=== PATIENT | female | born 1960 | race Caucasian/White ===

== ENCOUNTER 2017-05-05 09:35 | Observation (INO) | payer MEDICARE, MEDICAID ==
--- NOTE | ~2017-05-05 | HP ---
PATIENT: FRANCOIS GRACE MEDICAL RECORD: [id number] ACCOUNT: [id number] LOCATION:[address] : 56 ADMISSION DATE: 05/05/17 HISTORY AND PHYSICAL EXAMINATION ADMITTING DIAGNOSES: 1. Chest pain compatible with angina. 2. Abnormal stress test. 3. Past history of cerebrovascular accident. HISTORY OF PRESENT ILLNESS: Ms. Grace has no cardiac history. She does have a vascular history of CVA for which she is on Aggrenox followed by a doctor in [place]. She began having chest pain. Her doctor in [place] sent her for stress testing, this was abnormal. He has been trying to get her in with a sales specialist. She has had difficulty getting to [place] to see to the sales specialist. She presents to the Emergency Room with continued chest pain in a worsening fashion. PHYSICAL EXAMINATION: GENERAL APPEARANCE: Well-nourished, well-developed, appears stated age. Level of distress, comfortable. PSYCHIATRIC: Mental status, alert, normal affect. Orientation, oriented to time, place and person. EYES: Lids and conjunctiva, noninjected. No discharge, no pallor. ENT: Lips, teeth, gums, normal dentition. Oropharynx, no cyanosis, no pallor. NECK: Carotid arteries, bilateral normal upstroke, no bruits, no thrills. JUGULAR VEINS: No jugular venous pressure or distention. CERVICAL LYMPH NODES: Nontender, nonenlarged. THYROID: Not enlarged. Nontender. No nodules. LUNGS: Respiratory effort, unlabored. CHEST: Normal curvature. No thoracic deformity. No chest wall tenderness. Percussion, resonant. Auscultation, clear. No wheezes, no rales, no rhonchi. CARDIOVASCULAR: Precordial exam, nondisplaced. No heaves or pericardial thrills. Rate and rhythm, regular. Heart sounds, normal S1, normal S2. No S3, no gallop, no rub. Systolic murmur, not heard. Diastolic murmur, not heard. EXTREMITIES: No cyanosis, no edema. Peripheral pulses, full and equal in all extremities, except as noted. No bruits appreciated. ABDOMEN: Soft, nondistended. Normal aorta. No bruit. Nontender. No masses. Liver, nontender, no hepatomegaly. Spleen, nontender, no splenomegaly. MUSCULOSKELETAL: No joint tenderness. No joint swelling. No erythema. NEUROLOGICAL: Normal gait, normal strength, normal tone. SKIN: Warm and dry. OVERALL IMPRESSION: Unstable angina in a worsening fashion. We will proceed with coronary angiography. Further care depends upon findings of the angiography. TRANSINT:[id number] Voice Confirmation ID: [id number] DOCUMENT ID: [id number] HISTORY AND PHYSICAL [id number] FRANCOIS GRACE JEFFREY MD at 1153 CC: [id number] DICTATION DATE: 05/05/17 1540 TRUST ADMINISTRATIVE ASSISTANT: 05/05/17 1725 DIS IN 05/06/17 [facility] [address] [place] [address]
--- NOTE | ~2017-05-05 | DS ---
PATIENT:FRANCOIS GRACE :56 MEDICAL RECORD: [id number] DISCHARGE SUMMARY ADMISSION DATE: 05/05/17 DISCHARGE DATE: 05/06/17 DIAGNOSES: 1. Chest pain. 2. Normal cardiac catheterization. 3. Previous cerebrovascular accident. 4. Hypertension. HOSPITAL COURSE: Ms. Grace presents with chest pain compatible with angina; however, cardiac catheterization revealed no significant coronary artery disease. She was discharged home with no change in her medications. No cardiac followup is necessary. TRANSINT:[id number] Voice Confirmation ID: [id number] DOCUMENT ID: [id number] PAM CHEN MD at 1153 CC: [id number] DICTATION DATE: 05/06/17 0837 ASSEMBLY LINE WORKER: 05/06/171920 DIS IN 05/06/17 [facility] [address] [place] [address]
--- NOTE | ~2017-05-05 | HEMODYNAMI ---
PATIENT:FRANCOIS DORSEY MEDICAL RECORD: [id number] : 56 [facility] ADMISSION DATE: 05/05/17 Generatedon:05/06/20178:34 Patient name: FRANCOIS DORSEY Patient #: [id number] SSN: D OB: 1960 Date of study: 05/06/2017 Page: Of Hemodynamic Procedure Report Patient Data Patient Demographics Procedure consent was obtained First Name: FRANCOIS Gender: Female Last Name: WILLIAN : 1960 Middle Initial: E Age: 57 year(s) Patient #: [id number] Race: Unknown Additional ID: [id number] Contact details [address]: [address] [place] [address] rd State: [place] City: [place] Zip code: [address] Past Medical History Allergies: No known allergies Admission Admission Data Admission Date: 05/05/2017 Admission Time: 15:42 Room #: D.2114 Lab Results Lab Result Date: 05/06/2017 Lab Result Time: 0:00 Biochemistry Name Units Result Min Max BUN mg/dl 16 --(---*)-- 7 18 Creatinine mg/dl 1.1 --(--*-)-- 0.6 1.3 CBC Name Units Result Min Max Hemoglobin g/dl 14.3 --(*---)-- 13.5 17.5 Procedure Procedure Types Cath Procedure Diagnostic Procedure [facility] w/Coronaries Procedure Description Procedure Date Procedure Date: 05/06/2017 Procedure Start Time: 8:24 Procedure End Time: 8:34 Procedure Staff Name Function Timothy Tamayo MD Performing Physician Frandy Hayes RT Monitor Rosie Berg RT Scrub Yefri Rosas RN Nurse Procedure Data Cath Procedure Fluoroscopy Diagnostic fluoroscopy Total fluoroscopy Time: 0.9 time: 0.9 min min Diagnostic fluoroscopy Total fluoroscopy dose: 462 dose: 462 mGy mGy Contrast Material Contrast Material Type Amount (ml) Isovue 300 47 Entry Location Entry Primary Successful Side Size Upsize Upsize Entry Closure Succes sful Closure Location (Fr) 1 (Fr) 2 (Fr) Remarks Device Remarks Femoral Right 5 Fr Exoseal artery Estimated blood loss: 5 ml Diagnostic catheters Device Type Used For End Catheter Placement MULTIPACK Pigtail 5 Fr Procedure catheter MULTIPACK JL 4.0 5Fr Procedure catheter MULTIPACK 3DRC 5Fr Procedure catheter Procedure Complications No complications Procedure Medications Medication Administration Route Dosage Oxygen NC 2 l/min Heparin Flush Bag added to field 2 bags (1000units/500ml NS) 0.9% NaCl I.V. 100 ml/hr Fentanyl I.V. 50 mcg Versed I.V. 1 mg Fentanyl I.V. 50 mcg Versed I.V. 1 mg Fentanyl I.V. 50 mcg Hemodynamics Rest HGB: 14.3 (g/dl) Heart Rate: 73 (bpm) Pressure Samples Time Site Value (mmHg) Purpose Heart Use Rate(bpm) 8:25 LV 122/39,17 Snapshot 45 Snapshots Pre Cath Intra NCS Post Cath Vital Signs Time Heart Resp SPO2 etCO2 NIBP (mmHg) Rhythm Pain Sedation Rate (ipm) (%) (mmHg) Status Level (bpm) 8:08:25 74 21 100 40.8 129/68(104) NSR 0 (11) 10(A) , No pain 8:13:12 72 19 98 37.8 127/71(99) NSR 0 (11) 10(A) , No pain 8:17:58 77 17 96 38.5 128/71(101) NSR 0 (11) 10(A) , No pain 8:22:43 77 16 97 119/69(90) NSR 0 (11) 10(A) , No pain 8:27:28 70 16 95 0 112/64(90) NSR 0 (11) 9(A) , No pain 8:30:18 86 16 96 0 117/74(100) NSR 0 (11) 9(A) , No pain Medications Time Medication Route Dose Verified Delivered Reason Notes Effect iveness by by 8:07:43 Oxygen NC 2 Timothy Asif Per l/min Roni Rosas RN physician 8:07:51 Heparin Flush added 2 Timothy Asif used for Bag to bags Roni Rosas superintendent logging (1000units/500ml field NS) 8:08:00 0.9% NaCl I.V. 100 Timothy Asif Per ml/hr Roni Rosas RN physician 8:22:22 Fentanyl I.V. 50 Timothy Asif for radha Rosas RN sedation 8:22:28 Versed I.V. 1 mg Timothy Asif for Roni Rosas RN sedation 8:25:11 Fentanyl I.V. 50 Timothy Asif for radha Rosas RN sedation 8:25:16 Versed I.V. 1 mg Timothy Asif for Roni Rosas RN sedation 8:26:49 Fentanyl I.V. 50 Timothy Asif for radha Rosas RN sedation Procedure Log Time Note 7:43:54 Time tracking: Regular hours 7:43:58 Plan of Care:Hemodynamics will remain stable., Cardiac rhythm will remain stable., Comfort level will be maintained., Respiratory function will remain adequate., Patient/ family verbilizes understanding of procedure., Procedure tolerated without complication., Recovers from procedure without complications.. 7:44:00 Signed procedure consent form obtained from patient. 7:45:50 Lab Result : BUN 16 mg/dl 7:45:50 Lab Result : Creatinine 1.1 mg/dl 7:45:50 Lab Result : Hemoglobin 14.3 g/dl 7:46:01 Patient allergic to No known allergies 7:46:52 Frandy Hayes RT(R) sent for patient. Start room use. 8:04:01 Patient received from Pre/Post Procedure Room to CCL 1 Alert and oriented. Tansferred to table in Supine position. 8:04:02 Warm blankets applied, and gallo hugger turned on for patient comfort. 8:04:02 Correct patient and procedure confirmed by team. 8:04:03 ECG and BP/O2 sat monitors applied to patient. 8:07:24 Vital chart was started 8:07:43 Oxygen 2 l/min NC was administered by Yefri Rosas RN; Per physician; 8:07:51 Heparin Flush Bag (1000units/500ml NS) 2 bags added to field was administered by Yefri Rosas RN; used for procedure; 8:08:00 0.9% NaCl 100 ml/hr I.V. was administered by Yefri Rosas RN; Per physician; 8:11:49 Baseline sample Acquired. 8:11:57 Rhythm: sinus rhythm 8:12:00 Full Disclosure recording started 8:12:06 H&P Date Dictated: 05/05/2017 Within 30 days and on chart.. 8:12:08 Pre-procedure instructions explained to patient. 8:12:08 Pre-op teaching completed and patient verbalized understanding. 8:12:10 Family in patients room. 8:12:11 Patient NPO since Midnight. 8:12:13 Is the patient allergic to Iodine/contrast media? No. 8:12:14 Is patient on blood thinner?Yes 8:12:16 ACC The patient was administered the following blood thiners within the last 24 hours: ACCPlavix 8:12:18 Patient diabetic? Yes. 8:12:19 If diabetic: On Metformin? Yes 8:12:21 If on Metformin: Last Dose? 05/05/2017 8:12:26 Previous problem with sedation/anesthesia? No ? 8:12:27 Snore? Yes 8:12:28 Sleep apnea? No 8:12:29 Deviated septum? No 8:12:30 Opens mouth fully? Yes 8:12:31 Sticks out tongue? Yes 8:12:35 Airway obstruction? Yes COPD 8:12:38 Dentures? Yes OUT 8:12:41 Pre procedure: right dorsailis pedis pulse 2+ Normal; easily identifiable; not easily obliterated 8:12:43 Patient pain scale 0/10 ?. 8:12:46 IV patent on arrival in left hand with 0.9% NaCl at KVO. 8:12:49 Lab results completed and on chart. 8:12:51 Right groin area was prepped with chlora-prep and draped in sterile fashion 8:12:52 Alarms reviewed by R. N. 8:12:52 Sharps counted by scrub and verified by R.N. 8:12:55 Use device set Femoral Dx 8:12:56 ACIST Syringe (68845) opened to sterile field. 8:12:57 Bag Decanter (2002) opened to sterile field. 8:12:57 Medline Cath Pack ([id number]) opened to sterile field. 8:12:59 ACIST Hand Control (27049) opened to sterile field. 8:12:59 ACIST Manifold (50359) opened to sterile field. 8:13:01 Tegaderm 4 x 4 (1626W) opened to sterile field. 8:13:03 DIAGNOSTIC WIRE .035 260cm J wire (884817) opened to sterile field. 8:13:04 DIAGNOSTIC Multipack 5Fr catheter set (EO4497) opened to sterile field. 8:13:05 SHEATH 5FR [place] (LCA254) opened to sterile field. 8:13:09 PERCUTANEOUS ENTRY 19GA needle opened to sterile field. 8:13:15 Physician paged 8:13:28 IV Extension Set opened to sterile field. 8:20:35 Zero performed for pressure channel P1 8::47 Physician arrived 8::48 --------ALL STOP TIME OUT------ 8::48 Final Timeout: patient, procedure, and site verified with staff and physician. All members of the team are in agreement. 8:20:50 Right groin site verified by team. 8:20:52 Physical assessment completed. ASA score P 2 - A patient with mild systemic disease as per Timothy Tamayo MD. 8:20:56 Sedation plan: IV Moderate Sedation Medication:Versed, Fentanyl 8:22:22 Fentanyl 50 mcg I.V. was administered by Yefri Rosas RN; for sedation; 8::28 Versed 1 mg I.V. was administered by Yefri Rosas RN; for sedation; 8:24:00 Procedure started. 8:24:03 Local anesthetic to right femoral artery with Lidocaine 2% by Timothy Tamayo MD.INITIAL ACCESS ONLY 8:24:10 A 5 Fr sheath was inserted into the Right Femoral artery 8:25:11 Fentanyl 50 mcg I.V. was administered by Yefri Rosas RN; for sedation; 8:25:11 A MULTIPACK Pigtail 5 Fr catheter was advanced over the wire and used for Procedure. 8:25:16 Versed 1 mg I.V. was administered by Yefri Rosas RN; for sedation; 8::47 LV gram done using GLASS 8:25:50 Injector settings: Ml/sec: 10, Volume: 20, 8:26:01 EF : 50 % 8:26:06 Catheter exchanged over wire. 8:26:16 A MULTIPACK JL 4.0 5Fr catheter was advanced over the wire and used for Procedure. 8:26:43 LCA angiography performed. 8:26:49 Fentanyl 50 mcg I.V. was administered by Yefri Rosas RN; for sedation; 8:27:59 A MULTIPACK 3DRC 5Fr catheter was advanced over the wire and used for Procedure. 8:28:21 RCA angiography performed. 8:28:23 EXOSEAL 5Fr (EX500) opened to sterile field. 8:30:12 Catheter removed. 8:30:18 Sheath removed intact; hemostasis achieved with Exoseal to the Right Femoral artery. 8:30:20 Procedure ended.(Physican Out) 8:33:03 Fluoroscopy time 00.90 minutes. 8:33:13 Flurop Dose total: 462 8:33:13 Fluoroscopy dose: 462 mGy 8:33:16 Contrast amount:Isovue 300 47ml. 8:33:17 Sharps counted by scrub and verified by R.N. 8:33:19 Insertion/operative site no bleeding no hematoma. 8:33:21 Post-op/insertion site Right Femoral artery dressed using a 4 x 4 and Tegaderm. 8:33:24 Post right femoral artery:stable, soft, clean and dry 8:33:26 Post Procedure Pulses reassessed and unchanged 8:33:27 Post-procedure physical assessment completed. ASA score P 2 - A patient with mild systemic disease as per Timothy Tamayo MD. 8:33:30 Post procedure rhythm: unchanged. 8:33:32 Estimated blood loss: 5 ml 8:33:33 Post procedure instruction explained to patient.Patient verbalizes understanding. 8:33:33 Patient needs reinforcement of post procedure teaching. 8:33:53 Procedure and supply charges have been captured, reviewed, submitted and are correct. 8:33:54 Procedure Complication : No complications 8:33:56 Vital chart was stopped 8:33:57 See physician's report for complete and final results. 8:33:59 Report given to PCU. 8:34:01 Patient transfered to PCU with Stretcher. 8:34:02 Procedure ended. 8:34:02 Full Disclosure recording stopped 8:34:10 End room use (Document Last) Device Usage Item Name Manufacture Quantity Catalog Hospital Part Current Minimal Lot# / Number Charge Number Stock Stock Serial# Code ACIST Acist 1 10431 195495 355118 247628 20 PanXchange (55270) Systems Inc Bag Decanter Microtek 1 2001S 948021 52017 963257 5 (2001S) Medical Inc. Medline Cath Cardinal 1 [id number] 848210 45935 741610 5 Pack Health ([id number]) ACIST Hand Acist 1 64821 505605 623828 545578 5 Control Medical (61167) Systems Inc ACIST Acist 1 81593 528520 423628 660340 5 Manifold Medical (85488) Systems Inc Tegaderm 4 x 3M 1 1626W 834642 592584 085266 5 4 (1626W) DIAGNOSTIC [place] 1 162218 603564 419427 778149 30 WIRE .035 260cm J wire (427111) DIAGNOSTIC Cardinal 1 BY3608 403855 06450 198148 30 Multipack Health 5Fr catheter set (EM8972) SHEATH 5FR Terumo 1 ADJ724 281324 800742 024970 40 [place] (KKJ624) PERCUTANEOUS Cook Medical 1 N53167 851859 177623 5 ENTRY 19GA needle IV Extension Hospira 1 33891-02 549335 65586 019725 5 Set MULTIPACK Cardinal 1 396377 5 Pigtail 5 Fr Health catheter MULTIPACK JL Cardinal 1 450499 5 4.0 5Fr Health catheter MULTIPACK Cardinal 1 164511 5 3DRC 5Fr Health catheter EXOSEAL 5Fr Cardinal 1 EX500 340235 409493 249232 10 (EX500) Health Signature Audit Stewart Stage Time Signature Unsigned Intra-Procedure 05/06/2017 Frandy aHyes 8:34:28 AM RT(R) Signatures Monitor : Frandy Hayes RT Signature : Date : Time : [facility] [address] [place] [address]
--- NOTE | ~2017-05-05 | OP ---
PATIENT NAME: FRANCOIS DORSEY MEDICAL RECORD: [id number] :56 LOCATION:D.M2 D.2114 ADMISSION DATE:05/05/17 SURGEON: PAM CHEN MD DATE OF OPERATION: 05/06/2017 PROCEDURES: 1. Left heart catheterization. 2. Selective coronary angiography. 3. Left ventriculogram. INDICATION: Chest pain compatible with angina. PROCEDURE IN DETAIL: After informed consent was obtained and after detailed explanation of risks, benefits as well as alternative therapies, the patient elected to proceed with angiogram. The right femoral area was prepped and draped in normal sterile fashion. The right femoral artery was cannulated via modified Seldinger technique with placement of 5-[place] sheath. All catheters exchanged through this sheath. FINDINGS: Left ventriculogram was performed in standard 30-degree GLASS view, reveals good cardiac wall motion throughout all segments. Overall ejection fraction estimated at 60%. SELECTIVE CORONARY ANGIOGRAPHY: Left main, left anterior descending, left circumflex, right coronary artery are all smooth-walled vessels with no angiographic evidence of coronary artery disease. OVERALL IMPRESSION: 1. No angiographic evidence of coronary artery disease. 2. Normal left heart pressures. 3. Normal left ventricular systolic function. Chest pain is noncardiac in etiology. No further cardiac workup needs to be ascertained. TRANSINT:[id number] Voice Confirmation ID: [id number] DOCUMENT ID: [id number] PAM CHEN MD at 1153 CC: [id number] DICTATION DATE: 05/06/17 0838 INSTRUMENT ASSEMBLER: 05/06/17 1131 DIS IN 05/06/17 [facility] [address] [place] [id number]
[2017-05-05 12:49] LABS: BASOPHILS 0.4 % (0-2); EOSINOPHILS 6.3 % (0-7); HEMATOCRIT 44.9 % (36.0-48.0); HEMOGLOBIN 14.3 g/dL (12-16); IMMATURE GRANULOCYTES 0.2 % (0-5); MCHC 31.8 g/dL (31.0-37.0); MCV 100.4 fL (80.0-100.0); MEAN PLATELET VOLUME 9.9 fL (7.4-10.4); MONOCYTES 6.4 % (2-11); NEUTROPHILS 31.7 % (40-80); PLATELET COUNT 261 10x3/uL (130-400); RBC 4.47 10x6/uL (4.00-5.40); RDW 13.9 % (11.5-14.5); WBC 8.4 10x3/uL (4.8-10.8)
[2017-05-05 13:12] LABS: ALBUMIN 3.6 g/dL (3.4-5.0); ALKALINE PHOSPHATASE 122 U/L (46-116); ALT (SGPT) 32 U/L (10-68); BILIRUBIN - TOTAL 0.32 mg/dL (0.2-1.3); CALC OSMOLALITY 281 mosm/kg (275-300); CALCIUM 9.3 mg/dL (8.5-10.1); CARBON DIOXIDE 33.1 mmol/L (21.0-32.0); CHLORIDE - SERUM 100 mmol/L (98-107); CREATININE - SERUM 1.1 mg/dL (0.6-1.3); GLUCOSE 91 mg/dL (74-106); POTASSIUM - SERUM 4.1 mmol/L (3.5-5.1); PROTEIN - SERUM 7.7 g/dL (6.4-8.2); SODIUM 141 mmol/L (136-145); UREA NITROGEN 16 mg/dL (7-18); eGFR NON AFRICAN AMERICAN 54 mL/min (90-120)
[2017-05-05 13:25] LABS: CKMB 0.5 U/L (0.0-3.6); CREATINE KINASE 37 UL (21-215); PRO BNP 190 pg/mL (0-125)
[2017-05-05 13:30] LABS: TROPONIN-I < 0.017 ng/mL (0.000-0.060)
[2017-05-05 16:13] LABS: CHOL - HDL RATIO 2.3 ratio (2.3-4.1); LDL-HDL RATIO 1.1 ratio (1.5-3.5)
[2017-05-05] MEDS ORDERED: DILANTIN100 MG PO (22:16)
[2017-05-05] MEDS ORDERED: K-TAB10 MEQ PO (22:17)
[2017-05-05] MEDS ORDERED: MAG-OX 400 MG400 MG PO (22:19)
[2017-05-05] MEDS ORDERED: GLUCOPHAGE500 MG PO (22:20)
[2017-05-05] MEDS ORDERED: AGGRENOX 200/251 CAP PO (22:21)
[2017-05-05] MEDS ORDERED: LYRICA100 MG PO (22:21)
[2017-05-05] MEDS ORDERED: GLUCOPHAGE1000 MG PO (22:21)
[2017-05-05] MEDS ORDERED: ZOCOR40 MG PO (22:21)
[2017-05-05] MEDS ORDERED: CYMBALTA60 MG PO (22:22)
[2017-05-05] MEDS ORDERED: ANORO ELLIPTA1 EACH INH (22:22)
[2017-05-05] MEDS ORDERED: CYCLOBENZAPRINE10 MG PO (22:23)
[2017-05-05] MEDS ORDERED: LASIX20 MG PO (22:23)
[2017-05-05 22:41] VITALS: BMI 40.3
[2017-05-06 00:04] VITALS: BP 92/65
[2017-05-06 04:00] VITALS: BP 124/72
[2017-05-06 08:06] VITALS: BP 124/72
[2017-05-06 11:14] VITALS: BP 131/62
== END 2017-05-06 11:25 | disposition home or self-care (01) ==
LOC: D.ER 09:35 → D.M2 15:42 → D.EDHOLD 15:42 → OBSVTIME 15:42 → D.M2 22:12
PROVIDERS: Family Medicine
DX: R07.89 Other chest pain (principal); I10 Essential (primary) hypertension; Z86.73 Personal history of transient ischemic attack (TIA), and cerebral infarction without residual deficits